=== PATIENT | male | born 1970 | race Caucasian/White ===

== ENCOUNTER → 2017-05-21 | Outpatient (CLI) | payer BC ==
--- NOTE | 2017-05-21 15:57 | DIAGNOSTIC IMAGING REPORT ---
MRI OF THE RIGHT HIP WITHOUT IV CONTRAST CLINICAL HISTORY: Right hip pain. Clinical concern for stress fracture. COMPARISON STUDY: No priors. TECHNIQUE: MRI of the right hip is performed utilizing various T1 and T2-weighted sequences in the axial, sagittal, and coronal planes. IV contrast was not administered for this examination. Note that interpretation is suboptimal without plain film correlate. FINDINGS: Normal marrow signal intensity is preserved throughout the hips and the visualized bony pelvis. There is no MRI evidence of fracture or osteonecrosis involving the femoral heads. No joint effusion is seen. There is no greater trochanteric or iliopsoas bursitis. The origin of the hamstrings tendons appears intact. The surrounding musculature is normal in bulk and signal intensity. The pelvic viscera is normal as imaged. There is no pelvic sidewall or inguinal lymphadenopathy. IMPRESSION: No bony abnormality is seen involving the hips or visualized pelvis. Specifically, there is no MRI evidence of stress fracture in the right femur as clinically queried. Dictated: 05/21/2017 3:47 PM Transcribed: 05/21/2017 3:56 PM [email or web address] Electronically signed by: Dawson Bran M.D. 05/21/2017 4:03 PM Dictated Date/Time: 05/21/2017 3:47 PM
== END | disposition home or self-care (01) ==
LOC: C.MRIBC 14:57
PROVIDERS: ATTEND Orthopaedic Surgery
DX: M25.551 Pain in right hip (principal)

== ENCOUNTER → 2017-08-16 | Outpatient (CLI) | payer BC ==
[~2017-08-16] MED LIST: OPTIRAY 320 IV PRN
--- NOTE | 2017-08-16 07:08 | DIAGNOSTIC IMAGING REPORT ---
CT OF THE ABDOMEN AND PELVIS WITH CONTRAST CLINICAL HISTORY: Generalized abdominal pain. COMPARISON STUDY: Hepatobiliary scan September 03, 2014. TECHNIQUE: Following IV administration of 93 mL of Optiray-[id number], axial images of the abdomen and pelvis were obtained from the lung bases to the proximal femurs. Images were reviewed in the axial, sagittal, and coronal planes. IV contrast was administered without complication. A dose lowering technique was utilized adhering to the principles of ALARA. Oral contrast was administered. CT DOSE: 446.97 mGy.cm FINDINGS: Lung bases are clear. The liver, spleen, adrenal glands, left kidney and pancreas are normal. Note is made of a 1.2 cm cyst within the mid to lower pole of the right kidney. There is focal scarring within the midpole of the right kidney. There is no biliary or pancreatic ductal dilatation. No peripancreatic or pericholecystic infiltration is present. There is no hydronephrosis. The caliber and wall thickness of small and large bowel are normal. No abdominal or pelvic lymphadenopathy is present. Major vasculature is patent. There is no ascites. No pneumatosis, free air or portal venous gas is present. No suspicious osseous lesions are present. IMPRESSION: 1. No acute process within the abdomen or pelvis. 2. 1.2 cm right renal cyst and focal scarring within the midpole of the right kidney. 3. Normal appendix. No bowel obstruction. Electronically signed by: James Francis M.D. 08/16/2017 7:07 AM Dictated Date/Time: 08/16/2017 6:56 AM
== END | disposition home or self-care (01) ==
LOC: C.CTS 06:25
PROVIDERS: ATTEND Physician Assistant
DX: R10.84 Generalized abdominal pain (principal); N28.1 Cyst of kidney, acquired

== ENCOUNTER → 2017-10-10 | Outpatient (CLI) | payer BC | END | disposition home or self-care (01) | LOC: C.PATHSPEC 17:21 | PROVIDERS: ATTEND Urology | DX: R31.9 Hematuria, unspecified (principal) ==